=== PATIENT | male | born 1960 | race Caucasian/White ===

== ENCOUNTER 2022-03-05 10:50 | Outpatient (CLI) | payer OTHER, SELFPAY ==
--- NOTE | 2022-03-05 11:16 | XR_ITS ---
WS: [id number] Right shoulder, 2 views, 03/05/2022 Clinical Data: M25.511 - Pain in right shoulder Comparison: None. Findings: No fractures or dislocations are seen. There is minimal osteoarthritis of the right AC joint. The adj acent right clavicle, right scapula and ribs are normal. The soft tissues are unremarkable. XR/XR shoulder RT min 2V* [id number] Impression: 1. Mild right AC joint arthritis. 2. Negative right glenohumeral joint.
--- NOTE | 2022-03-05 11:16 | XR_ITS ---
WS: [id number] Left shoulder, 2 views, 03/05/2022 Clinical Data: M25.512 - Pain in left shoulder Comparison: None. Findings: No fractures or dislocations are seen. The AC joint is normal. The adjacent left clavicle, left scapu la and ribs are normal. The soft tissues are unremarkable. XR/XR shoulder LT min 2V* [id number] Impression: Negative left shoulder.
== END 2022-03-05 10:51 | disposition home or self-care (01) ==
PROVIDERS: PCP Nurse Practitioner Family; Visit Provider Nurse Practitioner Family
DX: M25.512 Pain in left shoulder (principal); M13.811 Other specified arthritis, right shoulder
CPT/HCPCS: 73030; 80053; 80061; 86160; 86162; 86235; 86255; 86376; 86431

== ENCOUNTER 2022-04-01 14:56 | Outpatient (CLI) | payer OTHER, SELFPAY ==
--- NOTE | 2022-04-01 15:15 | MR_ITS ---
WS: [id number] MRI RIGHT SHOULDER HISTORY: M25.519 - Pain in unspecified shoulder COMPARISON: Radiograph 03/05/2022 TECHNIQUE: Multiplanar sequences of the shoulder joint are submitted. AC joint narrowing with hypertrophic bone formation and edema. Small amount of fluid in the subdeltoi d bursa. Moderate size osteophyte along the undersurface of the distal acromion with subacromial impi ngement. No os acromion. Biceps tendon appears to be in the bicipital groove. Glenohumeral joint space narrowing. There is fluid between the tendon sheath of the supraspinatus and subscapularis muscles. Small insertion site tear of the infraspinatus tendon. No muscle atrophy or e irving. Subchondral cysts are noted in the posterior lateral humeral head. MR/MR shoulder RT wo con* [id number] IMPRESSION: 1. Moderate AC joint arthritis with encroachment upon the supraspinatus muscle . 2. Small amount of fluid near the rotator cuff interval. 3. Small insertion site tear infraspinatus tendon.
== END 2022-04-01 14:57 | disposition home or self-care (01) ==
PROVIDERS: PCP Nurse Practitioner Family; Visit Provider Nurse Practitioner Family
DX: M13.811 Other specified arthritis, right shoulder (principal); M25.511 Pain in right shoulder
CPT/HCPCS: 73221